=== PATIENT | female | born 1950 | race Caucasian/White ===

== ENCOUNTER 2016-12-04 13:03 | Emergency (ER) | payer OTHER ==
[~2016-12-04] VITALS: Ht 160 cm; Wt 65.0 kg
[2016-12-04 13:08] VITALS: BP 167/72; PULSE 77; RESP 16; TEMP 97.9; O2SAT 100
[2016-12-04] MEDS ORDERED: SODIUM CHLOR 0.9% 1000 ML INJ 1,000 ML IV SCH (13:29)
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
[2016-12-04 13:30] VITALS: BP_SYST 131; BP_SYST 148; BP_DIAS 72; BP_DIAS 76; PULSE 82; O2SAT 98
[2016-12-04] MEDS ORDERED: SODIUM CHLORIDE 0.9% FLUSH 10 ML FLUSH IVF PRN (13:30)
[2016-12-04 13:57] LABS: AUTOMATED NEUTROPHIL # 4.1 TH/MM3 (1.8-7.7); BASOPHIL # 0.1 TH/MM3 (0-0.2); BASOPHIL % 1.1 % (0.0-2.0); EOSINOPHIL # 0.1 TH/MM3 (0-0.4); EOSINOPHIL % 2.2 % (0.0-4.0); HEMATOCRIT 39.5 % (35.0-46.0); HEMO FLAGS DIFF FINAL; LYMPH % 23.7 % (9.0-44.0); LYMPHOCYTE # 1.5 TH/MM3 (1.0-4.8); MEAN CELL VOLUME 86.9 FL (80.0-100.0); MEAN CORPUSCULAR HGB CONC 32.2 % (32.0-36.0); MONO % 7.9 % (0.0-8.0); NEUT % 65.1 % (16.0-70.0); PLATELET COUNT 220 TH/MM3 (150-450); RED BLOOD COUNT 4.55 MIL/MM3 (4.00-5.30); WHITE BLOOD COUNT 6.3 TH/MM3 (4.0-11.0)
[2016-12-04 14:05] LABS: INTERNATIONAL NORMALIZED RATIO 0.9 RATIO; PROTHROMBIN TIME - PATIENT 10.2 SEC (9.8-11.6)
[2016-12-04 14:12] LABS: POTASSIUM 3.9 MEQ/L (3.5-5.1)
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
[2016-12-04] MEDS ORDERED: IOHEXOL 350 MG/ML 10 ML VIAL (for RAD DIAG) IV ONE (14:51)
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
[2016-12-04] MEDS ORDERED: KETOROLAC TROMETHAMINE 30 MG/ML (IVP) VIAL IV PUSH ONE (16:00)
[2016-12-04 16:15] VITALS: BP 143/71; PULSE 82; RESP 16; O2SAT 100
[2016-12-04] MEDS ORDERED: ONDANSETRON HCL 4 MG/2 ML VIAL IV PUSH ONE (16:15)
[2016-12-04] MEDS ORDERED: MORPHINE SULFATE 4 MG/ML INJ IV PUSH ONE (16:15)
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
[2016-12-04] MEDS ORDERED: ROBA500T PO (16:51)
[2016-12-04] MEDS ORDERED: MELO-1 PO (16:51)
[2016-12-04] MEDS ORDERED: HYDR-3533 PO (16:52)
[2016-12-04 18:15] VITALS: BP 111/57; PULSE 64; RESP 16; O2SAT 96
[2016-12-04 19:03] VITALS: BP 111/57; PULSE 75; RESP 18; O2SAT 100
--- NOTE | 2016-12-05 10:59 | EKG ---
Date Performed: 12/04/2016 Time Performed: 14:15:53 PTAGE: 66 years EKG: Sinus rhythm PATTERN CONSISTENT WITH PULMONARY DISEASE LEFT ANTERIOR FASCICULAR BLOCK ABNORMAL ECG NO PREVIOUS TRACING DOCTOR: Jairo Nunez Interpretating Date/Time 12/05/2016 10:57:59
== END 2016-12-04 19:05 | disposition home or self-care (01) ==
LOC: NEPC 13:03
DX: S82.145A Nondisplaced bicondylar fracture of left tibia, initial encounter for closed fracture (principal); S16.1XXA Strain of muscle, fascia and tendon at neck level, initial encounter; R07.89 Other chest pain; I44.4 Left anterior fascicular block; R94.31 Abnormal electrocardiogram [ECG] [EKG]; V43.62XA Car passenger injured in collision with other type car in traffic accident, initial encounter; Y93.89 Activity, other specified; Y92.411 Interstate highway as the place of occurrence of the external cause; M16.12 Unilateral primary osteoarthritis, left hip; M50.30 Other cervical disc degeneration, unspecified cervical region; E04.1 Nontoxic single thyroid nodule
CPT/HCPCS: 70450; 71010; 71260; 72125; 72170; 73590; 73700; 80048; 85025; 85610; 85730; 93005; 96374; 96375; 99285; E0113; J1885; J2270; J2405; J7030; L1830; Q9967